=== PATIENT | female | born 1955 | race Caucasian/White ===

== ENCOUNTER → 2023-06-09 | Outpatient (CLI) | payer MEDICARE ==
--- NOTE | 2023-06-11 09:44 | MR ---
EXAMINATION TYPE: MR lumbar spine wo/w con DATE OF EXAM: 06/09/2023 8:25 PM CLINICAL INDICATION:Female, 67 years old with history of M43.26 FUSION OF SPINE, LUMBAR REGION M54.16 M54.5; PHH, Low back pain, pain down back of both thighs since 2022. History of surgery about 8 years ago COMPARISON: None TECHNIQUE: Multi planar, multi sequence imaging was performed utilizing: T1-weighted, T2-weighted, a nd turbo inversion recovery imaging of the lumbar spine. IV Contrast: 8 cc Gadavist. (None if empty) FINDINGS: Limited evaluation due to susceptibility artifact extending from L2 through L5. There is multilevel o steophytes and facet joint arthropathy. There is at least moderate spinal canal stenosis at L1-L2 sec ondary to disc bulging and osteophytes. The neural foramen at this level are mild to moderately narro wed. The remainder of the levels demonstrate patent neural foramen. No abnormal postcontrast enhancem ent. The spinal alignment is within normal limits. IMPRESSION: Significantly limited exam due to susceptibility artifact. There is at least moderate at L1-L2 spinal canal stenosis. The neural foramen appear patent. No abnormal postcontrast enhancement where visuali zed.
== END | disposition home or self-care (01) ==
LOC: RADMRIMAIN 19:06
PROVIDERS: ATTEND Psychiatry & Neurology Neurology
DX: M48.061 Spinal stenosis, lumbar region without neurogenic claudication (principal); M43.26 Fusion of spine, lumbar region; M54.16 Radiculopathy, lumbar region; M46.1 Sacroiliitis, not elsewhere classified; Z98.890 Other specified postprocedural states
CPT/HCPCS: 72158; A9585

== ENCOUNTER → 2024-10-29 | Outpatient (CLI) | payer MEDICARE ==
[2024-10-29 13:47] LABS: African American GFR (CKD) >90 (>60 ml/min/1.73 sqM); Blood Urea Nitrogen 14 mg/dL (7-17); Non-African American GFR(CKD) 81 (>60 ml/min/1.73 sqM)
--- NOTE | 2024-10-29 14:35 | CT ---
EXAMINATION TYPE: CT lumbar spine wo/w con DATE OF EXAM: 10/29/2024 COMPARISON: None CLINICAL INDICATION: Female, 68 years old with history of M43.26,M48.062 SPINAL STENOSIS, LUMBAR ACOSTA ON WITH; PHH, Low back and sciatic pain. Spinal stenosis. TECHNIQUE:CT scan of the lumbar is performed without and with IV Contrast, patient injected with mL o f Isovue 300. CT DLP: 2150.[address] CTDI: mGy Automated exposure control for dose reduction was used. FINDINGS: Enhanced CT of the lumbar spine was performed. Bone and soft tissue window settings are submitted as well as coronal and sagittal reconstructions. There are postsurgical changes of laminectomy and posterior metallic and interbody fusion of L2, L3, L4 and L5. The L1-2 disc is well preserved in height. There is marked degenerative disease at the L5-S1 level where there is marked disc space narrowing, v acuum phenomena, spondylosis and discogenic endplate changes. There is a slight retrolisthesis of L5 on S1. Secondary to circumferential disc bulge and moderate thickening of ligamentum flavum and mild facet h ypertrophy there is a mild to moderate spinal stenosis the L5-S1 level. There is no significant bony neural foraminal encroachment bilaterally. IMPRESSION: 1. Postsurgical changes of laminectomy and fusion from L2 through L5. 2. Marked degenerative disc disease at the L5-S1 level. 3. mild to moderate spinal stenosis at the L5-S1 level. [facility], Workstation: [facility], 10/29/2024 2:33 PM
== END | disposition home or self-care (01) ==
LOC: RADCTMAIN 13:05
PROVIDERS: ATTEND Neurological Surgery
DX: M48.062 Spinal stenosis, lumbar region with neurogenic claudication (principal); M51.372 Other intervertebral disc degeneration, lumbosacral region with discogenic back pain and lower extremity pain; M43.26 Fusion of spine, lumbar region
CPT/HCPCS: 82565; 84520; 72133; 36415; Q9967